=== PATIENT | male | born 1940 | race Caucasian/White ===

== ENCOUNTER 2018-04-24 19:44 | Inpatient (IN) | payer MEDICARE ==
[2018-04-24 20:06] LABS: ABSOLUTE BASOPHILS # (AUTO) 0.1 10^3/uL (0.0-0.2); ABSOLUTE EOSINOPHILS # (AUTO) 0.3 10^3/uL (0.0-0.6); ABSOLUTE LYMPHOCYTES (AUTO) 1.6 10^3/uL (0.5-4.7); ABSOLUTE MONOCYTES (AUTO) 0.7 10^3/uL (0.1-1.4); ABSOLUTE NEUT (AUTO) 5.7 10^3/uL (1.7-8.2); BASOPHILS % (AUTO) 1.1 % (0-2); HEMATOCRIT 37.9 % (37.9-51.0); HEMOGLOBIN 12.8 g/dL (13.5-17.0); LYMPHOCYTES % (AUTO) 19.5 % (13-45); MEAN CORPUSCULAR HEMOGLOBIN 26.9 pg (27.0-33.4); MEAN CORPUSCULAR HGB CONC 33.7 g/dL (32.0-36.0); MEAN CORPUSCULAR VOLUME 80 fl (80-97); MONOCYTES % (AUTO) 8.2 % (3-13); PLATELET COUNT 187 10^3/uL (150-450); RED BLOOD COUNT 4.74 10^6/uL (4.35-5.55); RED CELL DISTRIBUTION WIDTH 20.9 % (11.5-14.0); SEGMENTED NEUTROPHILS % (AUTO) 68.2 % (42-78); TOTAL CELLS COUNTED % (AUTO) 100 %; WHITE BLOOD COUNT 8.4 10^3/uL (4.0-10.5)
[2018-04-24 20:07] LABS: INTERNATIONAL RATION (INR) 0.92; PROTHROMBIN TIME 12.8 SEC (11.4-15.4)
--- NOTE | 2018-04-24 20:07 | ER Document Report ---
ED General - General Stated Complaint: STROKE LIKE SYMPTOMS Time Seen by Provider: 04/24/18 20:06 Notes: Patient is a 78-year-old male with a past medical history of von Willebrand's disease, essential hypertension, current tobacco abuse, presents with 2 weeks of intermittent difficulty speaking and 3 hours of right upper and right lower extremity weakness. Patient states this weakness makes it difficult for him to walk. States that the symptoms started relatively abruptly, have been ongoing since that time. Denies any history of similar symptoms in the past. Nothing seems to improve or worsen his symptoms. Denies any associated chest pain, headache, vomiting, fever or constitutional symptoms. No recent head trauma. - Related Data Allergies/Adverse Reactions: aspirin Allergy (Mild, Verified 04/24/18 21:07) ibuprofen [From Advil] Allergy (Mild, Verified 04/24/18 21:08) Penicillins Allergy (Mild, Verified 04/24/18 21:08) Past Medical History - General Information source: Patient - Social History Smoking Status: Current Every Day Smoker Frequency of alcohol use: None Drug Abuse: None Lives with: Family Family History: Reviewed & Not Pertinent Review of Systems - Review of Systems Notes: Constitutional: Negative for fever. HENT: Negative for sore throat. Eyes: Negative for visual changes. Cardiovascular: Negative for chest pain. Respiratory: Negative for shortness of breath. Gastrointestinal: Negative for abdominal pain, vomiting or diarrhea. Genitourinary: Negative for dysuria. Musculoskeletal: Negative for back pain. Skin: Negative for rash. Neurological: Positive for dysarthria, right upper extremity and right lower extremity weakness 10 point ROS negative except as marked above and in HPI. Physical Exam - Vital signs Vitals: Pulse Resp BP Pulse Ox 63 20 201/115 H 98 04/24/18 19:55 04/24/18 19:55 04/24/18 19:55 04/24/18 19:55 Interpretation: Hypertensive Notes: PHYSICAL EXAMINATION: GENERAL: Well-appearing, well-nourished and in no acute distress. HEAD: Atraumatic, normocephalic. EYES: Pupils equal round and reactive to light, extraocular movements intact, s clera anicteric, conjunctiva are normal. ENT: nares patent, oropharynx clear without exudates. Moderate dry mucous membranes. NECK: Normal range of motion, supple without lymphadenopathy LUNGS: Breath sounds clear to auscultation bilaterally and equal. No wheezes rales or rhonchi. HEART: Regular rate and rhythm without murmurs ABDOMEN: Soft, nontender, normoactive bowel sounds. No guarding, no rebound. No masses appreciated. EXTREMITIES: Normal range of motion, no pitting or edema. No cyanosis. NEUROLOGICAL: On initial neurologic assessment, the patient has 4- out of 5 biceps and triceps strength 4- distal and proximal in the right lower extremity. Face symmetric. Tongue protrudes midline. No expressive or receptive A-shaped aphasia. Very mild dysarthria. 5 out of 5 biceps and triceps in the left upper extremity as well as 5 out of 5 distal and proximal in the left lower extremity. PSYCH: Normal mood, normal affect. SKIN: Warm, Dry, normal turgor, no rashes or lesions noted. Course - Re-evaluation Re-evalutation: 04/24/18 20:07 Patient presents with signs and symptoms most consistent with an acute left- sided MCA distribution stroke with approximately 4- out of 5 strength both in the biceps and triceps as well as distally and proximally in the right lower externally, normal on left. No facial droop. Slight dysarthria. No aphasia. Patient has a history of von Willebrand's disease, this is an absolute exclusion criteria for TPA. CT of the head pending. Standard stroke labs pending. Will continue to reassess the patient. 04/24/18 20:36 Patient's neurologic exam is been repeated. He admits of mild dysarthria, no aphasia. The patient's motor exam however has almost completely normalized almost 5 out of 5 both distally and proximally in the bilateral upper and lowers with perhaps very slight weakness to the right lower extremity 4+ out of 5 maximally. This is more suggestive of a TIA picture as opposed to a true stroke. CT the head unremarkable. She does have extremely elevated blood pressure currently 227 on 106 however reports that he has been unable to take blood pressure medications in the past as they have caused his bleeding diathesis to worsen and moreover this is more like an ischemic event so we will not proceed with any emergent blood pressure lowering at this time. Patient will go for MRI, carotid Dopplers. 04/24/18 22:31 MRI is consistent with a left thalamic stroke. Carotid Dopplers pending. I have discussed with Dr. Piña who has accepted the patient. - Vital Signs Vital signs: Temp Pulse Resp BP Pulse Ox 98.4 F 57 L 19 196/96 H 97 04/24/18 23:16 04/24/18 23:16 04/24/18 23:46 04/24/18 23:46 04/24/18 23:46 - Laboratory Result Diagrams: 04/24/18 19:31 04/24/18 19:31 Laboratory results interpreted by me: 04/24/18 04/24/18 04/24/18 19:31 19:31 20:07 Hgb 12.8 L MCH 26.9 L RDW 20.9 H Carbon Dioxide 31 H Glucose 113 H POC Glucose 119 H ALT 6 L - Diagnostic Test Radiology reviewed: Image reviewed, Reports reviewed Radiology results interpreted by me: 04/25/18 01:51 CT head: No acute intracranial bleed or mass - EKG Interpretation by Me Additional EKG results interpreted by me: 04/25/18 01:51 Sinus rhythm, rate 63. LVH. No ST elevations or depressions. QTC 476. Critical Care Note - Critical Care Note Total time excluding time spent on procedures (mins): 35 Comments: Critical care time spent obtaining history from patient or surrogate, discussions with consultants, development of treatment plan with patient or surrogate, evaluation of patient's response to treatment, examination of patient, ordering and performing treatments and interventions, ordering and review of laboratory studies, re-evaluation of patient's condition, ordering and review of radiographic studies and review of old charts Discharge - Discharge Clinical Impression: Acute ischemic stroke, Thalamic stroke Condition: Fair Disposition: ADMITTED INPATIENT Admitting Provider: Hospitalist Unit Admitted: [facility]
[2018-04-24 20:08] LABS: PARTIAL THROMBOPLASTIN TIME 34.6 SEC (23.5-35.8)
--- NOTE | 2018-04-24 20:21 | RADIOLOGY REPORT (SQ) ---
EXAM DESCRIPTION: CT HEAD WITHOUT IV CONTRAST COMPLETED DATE/TME: 04/24/2018 00:00 CLINICAL HISTORY: 78 years Male STROKE ALERT, deficits in the left MCA distribution, symptoms began three hours ago COMPARISON: None. TECHNIQUE: Contiguous axial CT images obtained through the brain without IV contrast. This exam was performed according to our department optimization program which includes automated exposure control, adjustment of the mA and/or kv according to patient size and/or use of iterative reconstruction technique. FINDINGS: The ventricles and sulci are prominent consistent with atrophic changes. Microvascular ischemic changes. Old area of previous lacunar infarct in the thalamus on the left. No midline shift or mass effect. No mass lesions. No acute hemorrhage. Atherosclerotic calcifications. No fluid or significant mucosal thickening in the visualized paranasal sinuses. No depressed calvarial fractures. IMPRESSION: No acute intracranial abnormality is identified. Dr. Estrada was called and notified of the findings at 7:20 PM Central time. Generalized atrophy with microvascular ischemic changes.
--- NOTE | 2018-04-24 20:25 | RADIOLOGY REPORT (SQ) ---
EXAM DESCRIPTION: XR CHEST 1 VIEW COMPLETED DATE/TME: 04/24/2018 00:00 CLINICAL HISTORY: 78 years, Male, STROKE ALERT COMPARISON: EXAM DESCRIPTION: CLINICAL HISTORY: STROKE ALERT COMPARISON: None. FINDINGS: Single view of the chest is submitted. Cardiac silhouette is normal. No focal parenchymal or pleural disease. No acute bony abnormality. There is no significant pulmonary vascular engorgement. IMPRESSION: No evidence of acute cardiopulmonary disease. NUMBER OF VIEWS: TECHNIQUE: LIMITATIONS: None. FINDINGS: IMPRESSION: copyright 2010 [employer]- All Rights Reserved
[2018-04-24 20:27] LABS: ALANINE AMINOTRANSFERASE 6 U/L (21-72); ALBUMIN 4.7 g/dL (3.5-5.0); ALKALINE PHOSPHATASE 65 U/L (38-126); ANION GAP 10 (5-19); ASPARTATE AMINO TRANSFERASE 21 U/L (17-59); BILIRUBIN,DIRECT 0.2 mg/dL (0.0-0.4); BILIRUBIN,TOTAL 0.3 mg/dL (0.2-1.3); BLOOD UREA NITROGEN 19 mg/dL (7-20); CALCIUM 9.8 mg/dL (8.4-10.2); CARBON DIOXIDE 31 mmol/L (22-30); CHLORIDE 99 mmol/L (98-107); CREATINE KINASE 152 U/L (55-170); GLUCOSE 113 mg/dL (75-110); SODIUM 140.4 mmol/L (137-145); TOTAL PROTEIN 7.3 g/dL (6.3-8.2)
[2018-04-24 20:40] LABS: CREATINE KINASE MB 4.25 ng/mL (<4.55)
[2018-04-24 20:42] LABS: TROPONIN I < 0.012 ng/mL
--- NOTE | 2018-04-24 20:51 | EKG REPORT ---
SEVERITY:- ABNORMAL ECG - SINUS RHYTHM LVH WITH SECONDARY REPOLARIZATION ABNORMALITY : Confirmed by: Lauren Maier MD 24-Apr-2018 20:51:03
--- NOTE | 2018-04-24 22:03 | RADIOLOGY REPORT (SQ) ---
EXAM DESCRIPTION: MR BRAIN WITHOUT IV CONTRAST COMPLETED DATE/TME: 04/24/2018 20:38 CLINICAL HISTORY: 78 years, Male, stroke vs tia COMPARISON: None. EXAM DESCRIPTION: CLINICAL HISTORY: stroke vs tia COMPARISON: 04/24/2018 CT TECHNIQUE: Multiplanar multisequence imaging of the brain including the intravenous administration of contrast. FINDINGS: There is a 8 x 5 mm focus of increased signal on diffusion imaging at the lateral aspect of the left thalamus involving the posterior limb of the left internal capsule. There is no definite corresponding increased signal on FLAIR or T2. This is consistent with hyperacute ischemia. There is no associated mass effect. No acute ischemia is seen elsewhere. Scattered foci of increased T2 signal intensity elsewhere do not exert significant mass effect on surrounding structures and may be sequela of prior insult, most likely on the basis of small vessel disease. No clear evidence of acute hemorrhage. There is no other evidence of acute mass, mass effect, midline shift or hemorrhage elsewhere. No focal abnormal extra-axial fluid collection is seen. The ventricles, basal cisterns and extra-axial fluid spaces are normal in size and configuration. Brain parenchymal signal is otherwise normal. IMPRESSION: There is hyperacute ischemia involving the lateral aspect of the left thalamus. No other acute abnormality is identified. No definite acute hemorrhage.
--- NOTE | 2018-04-24 23:08 | RADIOLOGY REPORT (SQ) ---
EXAM DESCRIPTION: US CAROTID DOPPLER BILATERAL COMPLETED DATE/TME: 04/24/2018 20:38 CLINICAL HISTORY: 78 years, Male, tia/stroke COMPARISON: None. TECHNIQUE: Transverse and longitudinal sonographic images of the cervical portions of the carotid arteries. LIMITATIONS: None. FINDINGS: Mild atheromatous changes associated with the carotid bifurcations bilaterally. No visible areas of severe stenosis. Doppler and spectral analysis with color flow shows antegrade flow in the vertebral arteries bilaterally. Biphasic and triphasic waveforms bilaterally. Velocities are as follows (in peak systolic velocity): Right distal CCA: 52 cm/s. Right proximal ICA: 59 cm/s. Right distal ICA: 71 cm/s. Right ECA: 52 cm/s. Right vertebral artery: 61 cm/s. Left distal CCA: 72 cm/s. Left proximal ICA: 58 cm/s. Left distal ICA: 87 cm/s. Left ECA: 133 cm/s. Left vertebral artery: 47 cm/s. IMPRESSION: Mild atheromatous changes of the carotid bifurcations bilaterally with no evidence for severe stenosis. Elevated left ECA velocity is noted. Antegrade flow in the vertebral arteries. copyright 2010 [employer]- All Rights Reserved
[2018-04-25] MEDS ORDERED: ONDANSETRON 4 MG TAB.RAPDIS PO PRN (00:13)
[2018-04-25] MEDS ORDERED: MAGNESIUM HYDROXIDE SUSP 30 ML UDCUP PO PRN (00:13)
[2018-04-25] MEDS ORDERED: ONDANSETRON HCL INJ/PF 4 MG/2 ML SDV IV PRN (00:13)
[2018-04-25] MEDS ORDERED: MAG HYDROX/AL HYDROX/SIMETH SUSP 30 ML UDCUP PO PRN (00:13)
[2018-04-25] MEDS ORDERED: ZOLPIDEM TARTRATE 5 MG TABLET PO PRN (00:13)
[2018-04-25] MEDS ORDERED: HYDRALAZINE HCL INJ/PF 20 MG/1 ML SDV IV PRN (00:37)
[2018-04-25] MEDS: METOPROLOL TARTRATE PF/INJ 5 MG/5 ML SDV IV SCH ×3 (02:35→13:26)
--- NOTE | 2018-04-25 05:07 | PDOC H&P ---
History of Present Illness Admission Date/PCP: 04/24/18 22:35 Patient complains of: Right sided weakness History of Present Illness: ANSELMO BOLTON is a 78 year old male who presented to the emergency room with an acute onset of right-sided weakness. He admits that at approximately 5 PM (3 hours prior to ER presentation) he suddenly developed severe right-sided weakness involving both his arms and his leg. Additionally he noted that he was unable to speak though he had no difficulty understanding language or written words. Over the first 2-3 hours his symptoms persisted but gradually began resolving with his speech improving to the point where it was slightly slurred but he was able to speak the words he wished to use. His right arm and leg also improved gradually after the same initial period of persistence. He has course was of gradual improvement throughout his entire ER visit to the point where at the time of my evaluation he had essentially no symptoms. He admits that for 2 or 3 weeks he has noted some intermittent difficulty with his speech and that he would stutter or sometimes have difficulty getting his words out. He denies any other associated symptoms. He admits to being a smoker and has untreated hypertension because he has been told, by his physician, that someone who has what von Willebrand's disease cannot take any high blood pressure medicines or anything to prevent stroke. Additionally he relates that his physician told him that he should use nicotine but since he was unable to use a nicotine patch due to skin irritation his doctor recommended that he smokes cigarettes. Patient denies prior similar episodes and has not identified any aggravating or ameliorating factors for his weakness and dysarthria. In the emergency room he was found to have a hyperacute left thalamic lacunar infarction on MRI. He was subsequently admitted to [facility] and the stroke protocol. Past Medical History Cardiac Medical History: Reports: Hypertension Denies: Coronary Artery Disease Pulmonary Medical History: Denies: Asthma, Chronic Obstructive Pulmonary Disease (COPD) EENT Medical History: Denies: Cataracts Neurological Medical History: Denies: Hemorrhagic CVA, Ischemic CVA, Seizures Endocrine Medical History: Denies: Diabetes Mellitus Type 1, Diabetes Mellitus Type 2, Hyperthyroidism, Hypothyroidism Renal/ Medical History: Denies: Chronic Kidney Disease, Nephrolithiasis Malignancy Medical History: Reports: None GI Medical History: Denies: Cirrhosis, Hepatitis Musculoskeltal Medical History: Denies: Arthritis, Fibromyalgia Skin Medical History: Denies: Eczema, Psoriasis Psychiatric Medical History: Reports: Tobacco Dependency Denies: Alcohol Dependency, Substance Abuse Traumatic Medical History: Reports: None Hematology: Reports: Bleeding Tendencies, Other - Von Willebrand's disease Denies: Anemia Infectious Medical History: Reports: None Past Surgical History Past Surgical History: Reports: Appendectomy Social History Information Source: Patient Lives with: Spouse/Significant other Smoking Status: Current Every Day Smoker Frequency of Alcohol Use: None Hx Recreational Drug Use: No Drugs: None Hx Prescription Drug Abuse: No - Advance Directive Resuscitation Status: Full Code Surrogate healthcare decision maker:: Spouse Family History Family History: Hypertension, Other - Von Willebrand's disease Parental Family History Reviewed: Yes Children Family History Reviewed: No Sibling(s) Family History Reviewed.: Yes Medication/Allergy Allergies/Adverse Reactions: aspirin Allergy (Mild, Verified 04/24/18 21:07) ibuprofen [From Advil] Allergy (Mild, Verified 04/24/18 21:08) Penicillins Allergy (Mild, Verified 04/24/18 21:08) Review of Systems Constitutional: ABSENT: anorexia, chills, fever(s) Eyes: ABSENT: visual disturbances, other - Ocular pain Ears: ABSENT: hearing changes, other - Ear pain Nose, Mouth, and Throat: ABSENT: mouth pain, sore throat Cardiovascular: ABSENT: chest pain, dyspnea on exertion, palpitations Respiratory: ABSENT: cough, dyspnea Gastrointestinal: ABSENT: abdominal pain, constipation, diarrhea, nausea, vomiting Genitourinary: ABSENT: dysuria, hematuria Musculoskeletal: ABSENT: deformity, joint swelling - [id number] Integumentary: ABSENT: pruritus, rash Neurological: PRESENT: as per HPI, abnormal speech, focal weakness. ABSENT: confusion, convulsions, memory loss Psychiatric: ABSENT: anxiety, depression Endocrine: ABSENT: cold intolerance, heat intolerance Hematologic/Lymphatic: PRESENT: easy bleeding - Due to von Willebrand's disease. ABSENT: easy bruising Physical Exam Vital Signs: Temp Pulse Resp BP Pulse Ox 98.0 F 57 L 20 207/100 H 98 04/24/18 22:30 04/24/18 23:12 04/24/18 23:12 04/24/18 23:12 04/24/18 23:12 Intake & Output 04/22/18 04/23/18 04/24/18 23:59 23:59 23:59 Weight 65.9 kg General appearance: PRESENT: no acute distress, cooperative, well-developed Head exam: PRESENT: atraumatic, normocephalic Eye exam: PRESENT: conjunctiva pink. ABSENT: scleral icterus Ear exam: PRESENT: normal external ear exam. ABSENT: bleeding Mouth exam: PRESENT: dry mucosa, neck supple Neck exam: ABSENT: thyromegaly, tracheal deviation Respiratory exam: PRESENT: clear to auscultation lurdes, symmetrical, unlabored Cardiovascular exam: PRESENT: RRR, other - PMI is displaced to the left anterior axillary line in the fifth intercostal space. ABSENT: clicks, gallop, rubs Pulses: PRESENT: normal radial pulses, normal dorsalis pedis pul Vascular exam: PRESENT: normal capillary refill. ABSENT: pallor GI/Abdominal exam: PRESENT: normal bowel sounds, soft Rectal exam: PRESENT: deferred Extremities exam: ABSENT: joint swelling, pedal edema Musculoskeletal exam: PRESENT: full ROM, normal inspection Neurological exam: PRESENT: alert, oriented to person, oriented to place, oriented to time, oriented to situation, CN II-XII grossly intact. ABSENT: motor sensory deficit Psychiatric exam: PRESENT: appropriate affect, normal mood Skin exam: PRESENT: dry, intact, warm. ABSENT: jaundice, rash, urticaria Results Laboratory Results: 04/24/18 19:31 04/24/18 19:31 04/24/18 04/24/18 19:31 19:31 WBC 8.4 RBC 4.74 Hgb 12.8 L Hct 37.9 MCV 80 MCH 26.9 L MCHC 33.7 RDW 20.9 H Plt Count 187 Seg Neutrophils % 68.2 Lymphocytes % 19.5 Monocytes % 8.2 Eosinophils % 3.0 Basophils % 1.1 Absolute Neutrophils 5.7 Absolute Lymphocytes 1.6 Absolute Monocytes 0.7 Absolute Eosinophils 0.3 Absolute Basophils 0.1 Sodium 140.4 Potassium 4.0 Chloride 99 Carbon Dioxide 31 H Anion Gap 10 BUN 19 Creatinine 1.12 Est GFR ( Amer) > 60 Est GFR (Non-Af Amer) > 60 Glucose 113 H Calcium 9.8 Total Bilirubin 0.3 AST 21 ALT 6 L Alkaline Phosphatase 65 Total Protein 7.3 Albumin 4.7 04/24/18 04/24/18 19:31 19:31 Creatine Kinase 152 CK-MB (CK-2) 4.25 Troponin I < 0.012 Impressions: Chest X-Ray 04/24/18 00:00 IMPRESSION: No evidence of acute cardiopulmonary disease. NUMBER OF VIEWS: TECHNIQUE: LIMITATIONS: None. FINDINGS: IMPRESSION: copyright 2010 [employer]- All Rights Reserved Head CT 04/24/18 00:00 IMPRESSION: No acute intracranial abnormality is identified. Dr. Estrada was called and notified of the findings at 7:20 PM Central time. Generalized atrophy with microvascular ischemic changes. Carotid Doppler Study 04/24/18 20:38 IMPRESSION: Mild atheromatous changes of the carotid bifurcations bilaterally with no evidence for severe stenosis. Elevated left ECA velocity is noted. Antegrade flow in the vertebral arteries. copyright 2010 [employer]- All Rights Reserved Head MRI 04/24/18 20:38 IMPRESSION: There is hyperacute ischemia involving the lateral aspect of the left thalamus. No other acute abnormality is identified. No definite acute hemorrhage. Assessment & Plan - Diagnosis (1) Acute ischemic VBA thalamic stroke Qualifiers: Laterality: left Qualified Code(s): I63.212 - Cerebral infarction due to unspecified occlusion or stenosis of left vertebral artery; I63.22 - Cerebral infarction due to unspecified occlusion or stenosis of basilar artery Is this a current diagnosis for this admission?: Yes Plan: Patient will be admitted to the stroke protocol on [facility]. His symptoms are resolving rapidly and are essentially resolved at the time of my evaluation. He will be observed closely for recurrence of symptoms and evaluated for appropriat e control of his underlying hypertension and von Willebrand's disease. (2) Hypertension Qualifiers: Hypertension type: essential hypertension Qualified Code(s): I10 - Essential (primary) hypertension Is this a current diagnosis for this admission?: Yes Plan: Patient's blood pressure will be controlled utilizing IV hydralazine 20 mg every 4 hours and/or IV metoprolol 5 mg every 4 hours to maintain a blood pressure less than 160 systolic and or 100 diastolic. (3) Tobacco use disorder, severe, dependence Is this a current diagnosis for this admission?: Yes Plan: Smoking cessation has been advised and counseled briefly. Patient states he cannot use a nicotine patch and has now interested in discontinuing smoking. (4) Von Willebrand's disease Is this a current diagnosis for this admission?: Yes Plan: Patient's von Willebrand's disease may be evaluated by hematology consult if required. (5) Left ventricular hypertrophy due to hypertensive disease Is this a current diagnosis for this admission?: Yes Plan: Patient will have a echocardiogram to evaluate his cardiomegaly and left ventricular hypertrophy in light of his acute stroke. - Time Time Spent: 30 to 50 Minutes Critical Time spent with patient: Less than 15 minutes Smoking Cessation Education: 3 to 10 minutes Medications reviewed and adjusted accordingly: No - Not taking any medications Anticipated discharge: Home - Inpatient Certification Based on my medical assessment, after consideration of the patient's comorbidities, presenting symptoms, or acuity I expect that the services needed warrant INPATIENT care.: Yes I certify that my determination is in accordance with my understanding of Medicare's requirements for reasonable and necessary INPATIENT services [42 CFR 412.3e].: Yes Medical Necessity: Need Close Monitoring Due to Risk of Patient Decompensation, Need For Continuous Telemetry Monitoring, Need for Neurological Checks, Risk of Complication if Not Cared For in Hospital
[2018-04-25 08:26] LABS: APPEARANCE,URINE CLEAR; BILIRUBIN,URINE NEGATIVE (NEGATIVE); COLOR,URINE YELLOW; GLUCOSE, URINE NEGATIVE (NEGATIVE); KETONES,URINE NEGATIVE (NEGATIVE); LEUKOCYTE ESTERASE,URINE NEGATIVE (NEGATIVE); NITRITE,URINE NEGATIVE (NEGATIVE); PROTEIN,URINE NEGATIVE (NEGATIVE); URINE SPECIFIC GRAVITY 1.016; UROBILINOGEN,URINE NEGATIVE mg/dL (<2.0)
[2018-04-25 09:22] LABS: HEMATOCRIT 39.6 % (37.9-51.0); HEMOGLOBIN 13.1 g/dL (13.5-17.0); MEAN CORPUSCULAR HEMOGLOBIN 26.6 pg (27.0-33.4); MEAN CORPUSCULAR VOLUME 81 fl (80-97); PLATELET COUNT 195 10^3/uL (150-450); RED BLOOD COUNT 4.91 10^6/uL (4.35-5.55); RED CELL DISTRIBUTION WIDTH 20.9 % (11.5-14.0); WHITE BLOOD COUNT 8.4 10^3/uL (4.0-10.5)
[2018-04-25 09:43] LABS: ANION GAP 11 (5-19); BLOOD UREA NITROGEN 18 mg/dL (7-20); CALCIUM 9.5 mg/dL (8.4-10.2); CARBON DIOXIDE 26 mmol/L (22-30); CHLORIDE 101 mmol/L (98-107); CHOLESTEROL 211.86 mg/dL (0-200); GLUCOSE 138 mg/dL (75-110); TRIGLYCERIDES 70 mg/dL (<150)
[2018-04-25 09:53] LABS: DIRECT LDL 123 mg/dL (<100)
[2018-04-25 10:02] LABS: FREE T3 4.12 pg/mL (2.77-5.27); FREE T4 (FREE THYROXINE) 1.08 ng/dL (0.78-2.19)
[2018-04-25 10:15] LABS: THYROID STIMULATING HORMONE 2.1 uIU/mL (0.47-4.68)
--- NOTE | 2018-04-25 10:27 | RADIOLOGY REPORT (SQ) ---
EXAM DESCRIPTION: CT HEAD WITHOUT COMPLETED DATE/TIME: 04/25/2018 10:02 am REASON FOR STUDY: Evolving symptoms COMPARISON: None. TECHNIQUE: Axial images acquired through the brain without intravenous contrast. Images reviewed wi th bone, brain and subdural windows. Additional sagittal and coronal reconstructions were generated. Images stored on PACS. All CT scanners at this facility use dose modulation, iterative reconstruction, and/or weight based d osing when appropriate to reduce radiation dose to as low as reasonably achievable (ALARA). [facility]: Dose Right [facility]: CareDose [facility]: Dose Right [facility]: Teradose 4D [facility]: [employer] RADIATION DOSE: CT Rad equipment meets quality standard of care and radiation dose reduction techniq ues were employed. CTDIvol: 53.2 mGy. DLP: 1044 mGy-cm.mGy. LIMITATIONS: None. FINDINGS: VENTRICLES: Prominent. CEREBRUM: No masses. No hemorrhage. No midline shift. Areas of low density in the white matter mos t likely due to chronic micro-vascular ischemic change. No evidence for acute infarction. CEREBELLUM: No masses. No hemorrhage. No alteration of density. No evidence for acute infarction. EXTRAAXIAL SPACES: Age-related involutional change. No fluid collections. No masses. ORBITS AND GLOBE: No intra- or extraconal masses. Normal contour of globe without masses. CALVARIUM: No fracture. PARANASAL SINUSES: No fluid or mucosal thickening. SOFT TISSUES: No mass or hematoma. OTHER: No other significant finding. IMPRESSION: CHRONIC CHANGES OF ATROPHY AND MICROVASCULAR ISCHEMIA. NO ACUTE PROCESS. EVIDENCE OF ACUTE STROKE: NO. TECHNICAL DOCUMENTATION: JOB ID: [id number] Quality ID # [id number]: Final reports with documentation of one or more dose reduction techniques (e.g., Au tomated exposure control, adjustment of the mA and/or kV according to patient size, use of iterative reconstruction technique) 2010 [employer]- All Rights Reserved Reading location - IP/workstation name: [email or web address]
[2018-04-25] MEDS: FAMOTIDINE 20 MG TABLET PO SCH ×2 (13:16→22:35)
[2018-04-25] MEDS: DOCUSATE SODIUM 100 MG CAPSULE PO SCH ×2 (13:16→18:28)
--- NOTE | 2018-04-25 13:19 | PDOC CONSULTATION ---
Consultation Consult Date: 04/25/18 Attending physician:: SUSAN CASTILLO Consult reason:: Known history of von Willebrand's disease long-standing, here with stroke need for antiplatelet therapy History of Present Illness Admission Date/PCP: 04/24/18 22:35 Patient complains of: Right-sided weakness, facial droop History of Present Illness: ANSELMO BOLTON is a 78 year old male who had acute onset right-sided weakness, facial droop, presented to the ED. Ultimately had CT noncontrasted of the head which did not indicate any evidence of bleed, thereafter had MRI of the brain which indicated a left thalamic infarct. He gave history of von Willebrand's disease. He does not know what type but is part of a large family of von Willebrand's patients in [facility] who has been extensively worked up by [facility]. He has never needed Humate-P replacement, but he has had bleeds. He has had occult GI bleeds, nosebleeds in the past. The most recent surgical stress was a colonoscopy that was done and he had 4 polyps removed and 24 hours out he had a severe post polypectomy bleed that required clips to be placed in the colon. In the last 3 months he has had a nosebleed that required cauterization. He has been on aspirin in the past and has had GI bleed post aspirin therapy. Past Medical History Cardiac Medical History: Reports: Hypertension Denies: Coronary Artery Disease Pulmonary Medical History: Denies: Asthma, Chronic Obstructive Pulmonary Disease (COPD) EENT Medical History: Reports: Other - Von Willebrand's disease Denies: Cataracts Neurological Medical History: Denies: Hemorrhagic CVA, Ischemic CVA, Seizures Endocrine Medical History: Denies: Diabetes Mellitus Type 1, Diabetes Mellitus Type 2, Hyperthyroidism, Hypothyroidism Renal/ Medical History: Denies: Chronic Kidney Disease, Nephrolithiasis Malignancy Medical History: Reports: None GI Medical History: Denies: Cirrhosis, Hepatitis Musculoskeltal Medical History: Denies: Arthritis, Fibromyalgia Skin Medical History: Denies: Eczema, Psoriasis Psychiatric Medical History: Reports: Tobacco Dependency Denies: Alcohol Dependency, Substance Abuse Traumatic Medical History: Reports: None Hematology: Reports: Bleeding Tendencies, Other - Von Willebrand's disease Denies: Anemia Infectious Medical History: Reports: None Past Surgical History Past Surgical History: Reports: Appendectomy, Other - Colonoscopy, left knee surgery Social History Information Source: Patient Lives with: Spouse/Significant other Smoking Status: Current Every Day Smoker Cigarettes Packs Per Day: 1 Frequency of Alcohol Use: None Hx Recreational Drug Use: No Drugs: None Hx Prescription Drug Abuse: No - Advance Directive Resuscitation Status: Full Code Family History Family History: Hypertension, Other - Von Willebrand's disease Parental Family History Reviewed: Yes Children Family History Reviewed: Yes Sibling(s) Family History Reviewed.: Yes Medication/Allergy Home Medications: No Home Medications 04/25/18 Allergies/Adverse Reactions: aspirin Allergy (Mild, Verified 04/24/18 21:07) ibuprofen [From Advil] Allergy (Mild, Verified 04/24/18 21:08) Penicillins Allergy (Mild, Verified 04/24/18 21:08) Review of Systems Constitutional: ABSENT: chills, fever(s), headache(s), weight gain, weight loss Eyes: ABSENT: visual disturbances Ears: ABSENT: hearing changes Cardiovascular: ABSENT: chest pain, dyspnea on exertion, edema, orthropnea, palpitations Respiratory: ABSENT: cough, hemoptysis Gastrointestinal: ABSENT: abdominal pain, constipation, diarrhea, hematemesis, hematochezia, nausea, vomiting Genitourinary: ABSENT: dysuria, hematuria Musculoskeletal: ABSENT: joint swelling Integumentary: ABSENT: rash, wounds Neurological: ABSENT: abnormal gait, abnormal speech, confusion, dizziness, focal weakness, syncope Psychiatric: ABSENT: anxiety, depression, homidical ideation, suicidal ideation Endocrine: ABSENT: cold intolerance, heat intolerance, polydipsia, polyuria Hematologic/Lymphatic: ABSENT: easy bleeding, easy bruising Physical Exam Vital Signs: Temp Pulse Resp BP Pulse Ox 97.7 F 61 16 188/87 H 97 04/25/18 08:36 04/25/18 10:08 04/25/18 08:36 04/25/18 10:08 04/25/18 08:36 Intake & Output 04/24/18 04/25/18 04/26/18 06:59 06:59 07:59 Weight 62 kg General appearance: PRESENT: no acute distress, well-developed, well-nourished Head exam: PRESENT: atraumatic, normocephalic Eye exam: PRESENT: conjunctiva pink, EOMI, PERRLA. ABSENT: scleral icterus Ear exam: PRESENT: normal external ear exam Mouth exam: PRESENT: moist, tongue midline Neck exam: ABSENT: carotid bruit, JVD, lymphadenopathy, thyromegaly Respiratory exam: PRESENT: clear to auscultation lurdes. ABSENT: rales, rhonchi, wheezes Cardiovascular exam: PRESENT: RRR. ABSENT: diastolic murmur, rubs, systolic murmur Pulses: PRESENT: normal dorsalis pedis pul Vascular exam: PRESENT: normal capillary refill GI/Abdominal exam: PRESENT: normal bowel sounds, soft. ABSENT: distended, guarding, mass, organolmegaly, rebound, tenderness Rectal exam: PRESENT: deferred Extremities exam: PRESENT: full ROM. ABSENT: calf tenderness, clubbing, pedal edema Neurological exam: PRESENT: alert, awake, oriented to person, oriented to place, oriented to time, oriented to situation, CN II-XII grossly intact. ABSENT: motor sensory deficit Psychiatric exam: PRESENT: appropriate affect, normal mood. ABSENT: homicidal ideation, suicidal ideation Skin exam: PRESENT: dry, intact, warm. ABSENT: cyanosis, rash Results Laboratory Results: 04/25/18 09:01 04/25/18 09:01 04/24/18 04/24/18 04/25/18 19:31 19:31 06:15 WBC 8.4 RBC 4.74 Hgb 12.8 L Hct 37.9 MCV 80 MCH 26.9 L MCHC 33.7 RDW 20.9 H Plt Count 187 Seg Neutrophils % 68.2 Lymphocytes % 19.5 Monocytes % 8.2 Eosinophils % 3.0 Basophils % 1.1 Absolute Neutrophils 5.7 Absolute Lymphocytes 1.6 Absolute Monocytes 0.7 Absolute Eosinophils 0.3 Absolute Basophils 0.1 Sodium 140.4 Potassium 4.0 Chloride 99 Carbon Dioxide 31 H Anion Gap 10 BUN 19 Creatinine 1.12 Est GFR ( Amer) > 60 Est GFR (Non-Af Amer) > 60 Glucose 113 H Calcium 9.8 Magnesium Total Bilirubin 0.3 AST 21 ALT 6 L Alkaline Phosphatase 65 Total Protein 7.3 Albumin 4.7 Triglycerides Cholesterol LDL Cholesterol Direct VLDL Cholesterol HDL Cholesterol TSH Free T4 Free T3 pg/mL Urine Color YELLOW Urine Appearance CLEAR Urine pH 6.0 Ur Specific [place] 1.016 Urine Protein NEGATIVE Urine Glucose (UA) NEGATIVE Urine Ketones NEGATIVE Urine Blood NEGATIVE Urine Nitrite NEGATIVE Ur Leukocyte Esterase NEGATIVE Urine WBC (Auto) 0 Urine RBC (Auto) 2 04/25/18 04/25/1819 09:01 09:01 09:01 WBC 8.4 RBC 4.91 Hgb 13.1 L Hct 39.6 MCV 81 MCH 26.6 L MCHC 33.0 RDW 20.9 H Plt Count 195 Seg Neutrophils % Lymphocytes % Monocytes % Eosinophils % Basophils % Absolute Neutrophils Absolute Lymphocytes Absolute Monocytes Absolute Eosinophils Absolute Basophils Sodium 138.0 Potassium 4.0 Chloride 101 Carbon Dioxide 26 Anion Gap 11 BUN 18 Creatinine 0.90 Est GFR ( Amer) > 60 Est GFR (Non-Af Amer) > 60 Glucose 138 H Calcium 9.5 Magnesium 2.1 Total Bilirubin AST ALT Alkaline Phosphatase Total Protein Albumin Triglycerides 70 Cholesterol 211.86 H LDL Cholesterol Direct 123 H VLDL Cholesterol 14.0 HDL Cholesterol 68 TSH 2.10 Free T4 1.08 Free T3 pg/mL 4.12 Urine Color Urine Appearance Urine pH Ur Specific [place] Urine Protein Urine Glucose (UA) Urine Ketones Urine Blood Urine Nitrite Ur Leukocyte Esterase Urine WBC (Auto) Urine RBC (Auto) 04/24/18 04/24/18 04/25/18 19:31 19:31 09:01 Creatine Kinase 152 CK-MB (CK-2) 4.25 Troponin I < 0.012 NT-Pro-B Natriuret Pep 1130 H Impressions: Chest X-Ray 04/24/18 00:00 IMPRESSION: No evidence of acute cardiopulmonary disease. NUMBER OF VIEWS: TECHNIQUE: LIMITATIONS: None. FINDINGS: IMPRESSION: copyright 2010 [employer]- All Rights Reserved Carotid Doppler Study 04/24/18 20:38 IMPRESSION: Mild atheromatous changes of the carotid bifurcations bilaterally with no evidence for severe stenosis. Elevated left ECA velocity is noted. Antegrade flow in the vertebral arteries. copyright 2010 [employer]- All Rights Reserved Head MRI 04/24/18 20:38 IMPRESSION: There is hyperacute ischemia involving the lateral aspect of the left thalamus. No other acute abnormality is identified. No definite acute hemorrhage. Head CT 04/25/18 00:00 IMPRESSION: CHRONIC CHANGES OF ATROPHY AND MICROVASCULAR ISCHEMIA. NO ACUTE PROCESS. EVIDENCE OF ACUTE STROKE: NO. Assessment & Plan - Diagnosis (1) Von Willebrand's disease Is this a current diagnosis for this admission?: Yes Plan: He does appear to most likely to have severe type I von Willebrand's disease most likely, we did send von Willebrand profile as well as multimers, this will help delineate his type of von Willebrand disease for sure. Unfortunately he is at a high risk for bleed if we place antiplatelet agents on. Hold on placement of any anticoagulation until we have von Willebrand profile back. Will make further recommendations thereafter. (2) Thalamic stroke Is this a current diagnosis for this admission?: Yes Plan: Hold on antiplatelet therapy, will monitor. - Time Time Spent: Greater than 70 Minutes - Inpatient Certification Based on my medical assessment, after consideration of the patient's comorbidities, presenting symptoms, or acuity I expect that the services needed warrant INPATIENT care.: Yes I certify that my determination is in accordance with my understanding of Medicare's requirements for reasonable and necessary INPATIENT services [42 CFR 412.3e].: Yes Medical Necessity: Risk of Complication if Not Cared For in Hospital
--- NOTE | 2018-04-25 16:43 | PROGRESS NOTE E ---
Progress Note NAME: ANSELMO BOLTON : 1940 AGE: 78Y DATE: 04/25/2018 ROOM: 330 SUBJECTIVE: At approximately 9 a.m. I was notified by nursing staff that the patient had developed worsening of his presenting symptoms. The did have a right-sided facial droop as well as paresthesias and near flaccidity of his right upper extremity. The patient was noted to be significantly hypertensive this morning 201/106. The patient was medicated with hydralazine as ordered and his blood pressure lower to 157/91. Subsequently the patient had worsening of his presenting symptoms. The patient was able to maintain his airway. He was alert and oriented, just with more expressive aphasia and more persistent weakness. A CT of the head was obtained, had no evidence of bleeding associated with this. The patient cannot be medicated given his Von Willebrand's disease. I did call and discuss the case with Dr. Ornelas of hematology, who has agreed to see the patient on consultation, and it was agreed that antiplatelet therapy is not feasibly in this patient. Therefore, this cannot be administered. The patient was seen and evaluated by Dr. Ornelas and I did accompany him for this visit. All questions were answered. The patient is aware that this is indeed related to the stroke that was seen on imaging on 04/24/2018 at 1038. The patient's symptoms will wax and wane most likely due to the patient's drop in cerebral perfusion. A STAT liter of fluid was given to increase his blood pressure again to the 200 range, which is the patient's actual baseline. I did have a conversation with the patient at bedside regarding goals of care and advance directives and so forth, and the patient stated that if he needed a feeding tube he would want it. However, he does want to be a DNR/DNI, "should the Lord take him he does not want to be brought back." The patient stated that if his heart stopped or if he were to cease respirations he would not any resuscitation. This was said in conjunction with the patient's nurse. REVIEW OF SYSTEMS: The rest of review of systems negative. MEDICATIONS: Have been reviewed. OBJECTIVE: GENERAL: The patient is a 78-year-old male who is awake, alert, and oriented to person, time, place, situation. He is verbal, conversational, does have some aphasia. Does not appear to be in any acute distress. VITAL SIGNS: Temperature is 97.7, pulse 61, respirations 16, blood pressure is 188/87, oxygen saturation is 97% on room air. SKIN: Warm and dry. No rash. He is not diaphoretic. HEENT: Pupils equal, round and reactive to light and accommodation. Conjunctivae are pink. No evidence of JVP. CARDIOVASCULAR: Heart is regular. There is no murmur or rub. CHEST: Clear, symmetrical, unlabored. ABDOMEN: Soft and nontender. EXTREMITIES: No clubbing, cyanosis, no edema. NEUROLOGIC: The patient's right arm is near flaccidity. He does have a right-sided facial droop noted. PSYCHIATRIC: The patient does have an appropriate affect, pleasant mood. DIAGNOSTICS: Lab values are as follows - hematology obtained on 04/25/2018; WBC is 8.4, hemoglobin is 13.1, hematocrit is 39.6, platelet count is 195,000. Chemistry obtained on 04/25/2018; sodium is 138, potassium 4.0, chloride is 101, carbon dioxide 26, BUN 18, creatinine is 0.90, glucose 138, calcium is 9.5, magnesium is 2.1. Triglyceride is 70, cholesterol is 211, LDL is 123, VLDL is 14, HDL is 68. IMPRESSION AND PLAN: 1. ACUTE ISCHEMIC VBA THALAMIC STROKE. Unfortunately the patient is unable to have any antiplatelet therapy. The patient has been seen and evaluated by hematology service as well. Von Willebrand panel has been sent out to evaluate his levels. Will refer the patient for acute rehab with Dr. Fu and continue supportive measures. The patient will be evaluated by speech, occupational, and physical therapies. 2. HYPERTENSION. The patient does not take any antihypertensive agents and his normal blood pressure is in the 200 range. Will not have tight blood pressure control given the severity of the patient's symptoms with poor perfusion. Will set blood pressure parameters if greater than 220. 3. TOBACCO DEPENDENCY CONTINUOUS. Discussed cessation education. The patient refuses any pharmacological intervention. He states that he cannot use the patch but is interested in stopping smoking all together, possibly. 4. VON WILLEBRAND'S DISEASE. Panels have been send. Do greatly appreciate Dr. Ornelas's speedy help with this. 5. LEFT VENTRICULAR HYPERTROPHY DUE TO HYPERTENSIVE DISEASE. The patient is to have an echo. CODE STATUS: The patient is a DO NOT RESUSCITATE/DO NOT INTUBATE. DISPOSITION: Depending on the patient's symptomatology and diagnostic findings will reevaluate in the a.m. TIME SPENT: On this critical care visit, including assessment and plan, physical examination, patient education, and review of multiple labs and diagnostics is 35 minutes. DICTATING PHYSICIAN: YANNA FRASER NP [id number] PHY#: [id number] [id number] JOB#: [id number] ACCT: [id number] cc: >
--- NOTE | 2018-04-25 22:15 | EKG REPORT ---
SEVERITY:- ABNORMAL ECG - SINUS RHYTHM LVH WITH SECONDARY REPOLARIZATION ABNORMALITY : Confirmed by: Lauren Maier MD 25-Apr-2018 22:14:38
[2018-04-25] MEDS: ATORVASTATIN CALCIUM 40 MG TABLET PO SCH (22:35)
[2018-04-26 06:47] LABS: HEMATOCRIT 38.7 % (37.9-51.0); HEMOGLOBIN 12.9 g/dL (13.5-17.0); MEAN CORPUSCULAR HEMOGLOBIN 26.7 pg (27.0-33.4); MEAN CORPUSCULAR HGB CONC 33.3 g/dL (32.0-36.0); MEAN CORPUSCULAR VOLUME 80 fl (80-97); PLATELET COUNT 192 10^3/uL (150-450); RED BLOOD COUNT 4.82 10^6/uL (4.35-5.55); RED CELL DISTRIBUTION WIDTH 20.4 % (11.5-14.0); WHITE BLOOD COUNT 10.1 10^3/uL (4.0-10.5)
[2018-04-26 07:18] LABS: ANION GAP 8 (5-19); BLOOD UREA NITROGEN 17 mg/dL (7-20); CALCIUM 9.6 mg/dL (8.4-10.2); CARBON DIOXIDE 27 mmol/L (22-30); CHLORIDE 102 mmol/L (98-107); CHOLESTEROL 205.94 mg/dL (0-200); GLUCOSE 93 mg/dL (75-110); POTASSIUM 3.7 mmol/L (3.6-5.0); SODIUM 137.4 mmol/L (137-145); TRIGLYCERIDES 85 mg/dL (<150)
[2018-04-26 07:31] LABS: DIRECT LDL 124 mg/dL (<100)
[2018-04-26 07:37] LABS: FREE T3 3.65 pg/mL (2.77-5.27); FREE T4 (FREE THYROXINE) 1.12 ng/dL (0.78-2.19)
[2018-04-26 07:51] LABS: THYROID STIMULATING HORMONE 2.09 uIU/mL (0.47-4.68)
[2018-04-26] MEDS: FAMOTIDINE 20 MG TABLET PO SCH ×2 (09:38→21:37)
[2018-04-26] MEDS: DOCUSATE SODIUM 100 MG CAPSULE PO SCH ×2 (09:38→17:29)
--- NOTE | 2018-04-26 10:23 | PDOC PROGRESS REPORT ---
Subjective Progress Note for:: 04/26/18 Subjective:: Not much neurologic guide changer the last 24 hours Reason For Visit: ACUTE CVA Physical Exam Vital Signs: Temp Pulse Resp BP Pulse Ox 98.1 F 57 L 15 196/84 H 97 04/26/18 07:41 04/26/18 07:41 04/26/18 07:41 04/26/18 07:41 04/26/18 07:41 Intake & Output 04/25/18 04/26/18 04/27/18 05:59 06:59 06:59 Intake Total Output Total Balance Weight 61.5 kg General appearance: PRESENT: no acute distress, well-developed, well-nourished Head exam: PRESENT: atraumatic, normocephalic Eye exam: PRESENT: conjunctiva pink, EOMI, PERRLA. ABSENT: scleral icterus Ear exam: PRESENT: normal external ear exam Mouth exam: PRESENT: moist, tongue midline Neck exam: ABSENT: carotid bruit, JVD, lymphadenopathy, thyromegaly Respiratory exam: PRESENT: clear to auscultation lurdes. ABSENT: rales, rhonchi, wheezes Cardiovascular exam: PRESENT: RRR. ABSENT: diastolic murmur, rubs, systolic murmur Pulses: PRESENT: normal dorsalis pedis pul Vascular exam: PRESENT: normal capillary refill GI/Abdominal exam: PRESENT: normal bowel sounds, soft. ABSENT: distended, guarding, mass, organolmegaly, rebound, tenderness Rectal exam: PRESENT: deferred Extremities exam: PRESENT: full ROM. ABSENT: calf tenderness, clubbing, pedal edema Neurological exam: PRESENT: alert, awake, oriented to person, oriented to place, oriented to time, oriented to situation, CN II-XII grossly intact. ABSENT: motor sensory deficit Psychiatric exam: PRESENT: appropriate affect, normal mood. ABSENT: homicidal ideation, suicidal ideation Skin exam: PRESENT: dry, intact, warm. ABSENT: cyanosis, rash Results Laboratory Results: 04/26/18 06:33 04/26/18 06:33 04/25/18 04/25/18 04/25/18 09:01 09:01 09:01 WBC 8.4 RBC 4.91 Hgb 13.1 L Hct 39.6 MCV 81 MCH 26.6 L MCHC 33.0 RDW 20.9 H Plt Count 195 Sodium 138.0 Potassium 4.0 Chloride 101 Carbon Dioxide 26 Anion Gap 11 BUN 18 Creatinine 0.90 Est GFR ( Amer) > 60 Est GFR (Non-Af Amer) > 60 Glucose 138 H Calcium 9.5 Magnesium 2.1 Triglycerides 70 Cholesterol 211.86 H LDL Cholesterol Direct 123 H VLDL Cholesterol 14.0 HDL Cholesterol 68 TSH 2.10 Free T4 1.08 Free T3 pg/mL 4.12 04/26/18 04/26/18 04/26/18 06:33 06:33 06:33 WBC 10.1 RBC 4.82 Hgb 12.9 L Hct 38.7 MCV 80 MCH 26.7 L MCHC 33.3 RDW 20.4 H Plt Count 192 Sodium 137.4 Potassium 3.7 Chloride 102 Carbon Dioxide 27 Anion Gap 8 BUN 17 Creatinine 1.04 Est GFR ( Amer) > 60 Est GFR (Non-Af Amer) > 60 Glucose 93 Calcium 9.6 Magnesium 2.1 Triglycerides 85 Cholesterol 205.94 H LDL Cholesterol Direct 124 H VLDL Cholesterol 17.0 HDL Cholesterol 61 TSH 2.09 Free T4 1.12 Free T3 pg/mL 3.65 04/24/18 04/24/18 04/25/18 19:31 19:31 09:01 Creatine Kinase 152 CK-MB (CK-2) 4.25 Troponin I < 0.012 NT-Pro-B Natriuret Pep 1130 H 04/26/18 06:33 Creatine Kinase CK-MB (CK-2) Troponin I NT-Pro-B Natriuret Pep 766 H Impressions: Chest X-Ray 04/24/18 00:00 IMPRESSION: No evidence of acute cardiopulmonary disease. NUMBER OF VIEWS: TECHNIQUE: LIMITATIONS: None. FINDINGS: IMPRESSION: copyright 2010 [employer]- All Rights Reserved Carotid Doppler Study 04/24/18 20:38 IMPRESSION: Mild atheromatous changes of the carotid bifurcations bilaterally with no evidence for severe stenosis. Elevated left ECA velocity is noted. Antegrade flow in the vertebral arteries. copyright 2010 [employer]- All Rights Reserved Head MRI 04/24/18 20:38 IMPRESSION: There is hyperacute ischemia involving the lateral aspect of the left thalamus. No other acute abnormality is identified. No definite acute hemorrhage. Head CT 04/25/18 00:00 IMPRESSION: CHRONIC CHANGES OF ATROPHY AND MICROVASCULAR ISCHEMIA. NO ACUTE PROCESS. EVIDENCE OF ACUTE STROKE: NO. Assessment & Plan - Diagnosis (1) Von Willebrand's disease Is this a current diagnosis for this admission?: Yes Plan: Awaiting von Willebrand levels, will make further antiplatelet recommendations based upon this (2) Thalamic stroke Is this a current diagnosis for this admission?: Yes Plan: Continue with hospitalist team approach - Time Time Spent with patient: 15-24 minutes
[2018-04-26] MEDS: ATORVASTATIN CALCIUM 40 MG TABLET PO SCH (21:37)
--- NOTE | 2018-04-26 23:38 | PROGRESS NOTE E ---
Progress Note NAME: ANSELMO BOLTON : 1940 AGE: 78Y DATE: 04/26/2018 ROOM: 330 SUBJECTIVE: The patient is in bed. The patient states that he feels about the same as he did yesterday. Family is present at the bedside, active in the patient's care. All questions were addressed. The patient does deny any nausea, vomiting. No diarrhea, shortness of breath, dizziness, or chest pain. He still has persistent right-sided weakness. His facial droop does not appear as pronounced, and the patient does not voice any other concerns at this time. REVIEW OF SYSTEMS: The rest of the review of systems is negative. MEDICATIONS: Have been reviewed. OBJECTIVE: GENERAL: The patient is a 78-year-old male who is awake, alert, and oriented to person, time, place, situation. He is verbal, conversational. Does not appear to be in any acute distress. VITAL SIGNS: Temperature is 97.7, pulse 56, respirations 18, blood pressure is 199/91, oxygen saturation is 98% on room air. SKIN: Warm and dry. No rash. He is not diaphoretic. HEENT: Pupils equal, round and reactive to light and accommodation. Conjunctivae are pink. No evidence of JVP. CARDIOVASCULAR: Heart is regular. There is no murmur or rub. CHEST: Clear, symmetrical, unlabored. ABDOMEN: Soft, nontender, nondistended. BACK: No CVA tenderness, sacral edema. EXTREMITIES: No clubbing, cyanosis, or edema. PSYCHIATRIC: Appropriate affect, pleasant mood. NEUROLOGIC: The patient does have right-sided weakness, right upper extremity is near flaccid though the patient does have some movement of his right lower extremity. The patient's facial droop appears to have nearly resolved. DIAGNOSTICS: Lab values are as follows - hematology obtained on 04/26/2018; WBC is 10.1, hemoglobin is 12.9, hematocrit is 30.7, platelet count is 192,000. Chemistry obtained on 04/26/2018; sodium is 137, potassium 3.7, chloride is 102, carbon dioxide 27, BUN 17, creatinine 1.04, glucose 73, A1c is 5.5, calcium is 9.6, magnesium is 2.1. Triglycerides 85, cholesterol 205, LDL 124, VLDL 17, HDL is 61. IMPRESSION AND PLAN: 1. ACUTE ISCHEMIC VBA THALAMIC STROKE. Unfortunately the patient is unable to take antiplatelet therapy. The patient was seen and evaluated by the hematology service, Von Willebrand panel has been sent out. The patient has been referred for acute rehab. He is interested in [facility]. The patient has been evaluated by [facility]. The patient is tolerating a statin. 2. HYPERTENSION. The patient does not take any antihypertensive medications at home. His normal blood pressure has been in the systolic 200 range. The patient became profoundly symptomatic once his blood pressure was lowered to the 180s to 170 range. Will continue to keep a goal of less than 220 systolically. 3. VON WILLEBRAND'S DISEASE. Do appreciate Dr. Ornelas's speedy help with this. The patient is unable to have antiplatelet therapy. 4. LEFT VENTRICULAR HYPERTROPHY DUE TO HYPERTENSIVE DISEASE. 5. TOBACCO DEPENDENCY CONTINUOUS. Will continue to encourage tobacco cessation. CODE STATUS: The patient is a DO NOT RESUSCITATE/DO NOT INTUBATE. DISPOSITION: Depending on the patient's symptomatology and diagnostic findings will reevaluate in the a.m. TIME SPENT: On this follow up, including assessment and plan, physical examination, patient education and review of records and family meeting is 35 minutes. DICTATING PHYSICIAN: YANNA FRASER NP [id number] PHY#: [id number] ID: [id number] JOB#: [id number] ACCT: [id number] cc: >
[2018-04-27 06:04] LABS: HEMATOCRIT 38.6 % (37.9-51.0); HEMOGLOBIN 12.8 g/dL (13.5-17.0); MEAN CORPUSCULAR HEMOGLOBIN 26.6 pg (27.0-33.4); MEAN CORPUSCULAR HGB CONC 33.2 g/dL (32.0-36.0); MEAN CORPUSCULAR VOLUME 80 fl (80-97); PLATELET COUNT 170 10^3/uL (150-450); RED BLOOD COUNT 4.81 10^6/uL (4.35-5.55); WHITE BLOOD COUNT 9.8 10^3/uL (4.0-10.5)
[2018-04-27 06:22] LABS: ANION GAP 11 (5-19); BLOOD UREA NITROGEN 18 mg/dL (7-20); CALCIUM 9.2 mg/dL (8.4-10.2); CARBON DIOXIDE 25 mmol/L (22-30); CHLORIDE 101 mmol/L (98-107); GLUCOSE 86 mg/dL (75-110); POTASSIUM 3.8 mmol/L (3.6-5.0); SODIUM 136.9 mmol/L (137-145)
--- NOTE | 2018-04-27 08:18 | PDOC PROGRESS REPORT ---
Subjective Progress Note for:: 04/27/18 Subjective:: No acute events overnight, patient has greater strength in the right upper extremity, facial droop is improved greatly. Reason For Visit: ACUTE CVA Physical Exam Vital Signs: Temp Pulse Resp BP Pulse Ox 98.6 F 65 14 194/90 H 96 04/27/18 07:42 04/27/18 07:42 04/27/18 07:42 04/27/18 07:42 04/27/18 07:42 Intake & Output 04/26/18 04/27/18 04/28/18 06:59 06:59 06:59 Intake Total 536 Output Total 415 Balance 121 Weight 61.5 kg General appearance: PRESENT: no acute distress, well-developed, well-nourished Head exam: PRESENT: atraumatic, normocephalic Eye exam: PRESENT: conjunctiva pink, EOMI, PERRLA. ABSENT: scleral icterus Ear exam: PRESENT: normal external ear exam Mouth exam: PRESENT: moist, tongue midline Neck exam: ABSENT: carotid bruit, JVD, lymphadenopathy, thyromegaly Respiratory exam: PRESENT: clear to auscultation lurdes. ABSENT: rales, rhonchi, wheezes Cardiovascular exam: PRESENT: RRR. ABSENT: diastolic murmur, rubs, systolic murmur Pulses: PRESENT: normal dorsalis pedis pul Vascular exam: PRESENT: normal capillary refill GI/Abdominal exam: PRESENT: normal bowel sounds, soft. ABSENT: distended, guarding, mass, organolmegaly, rebound, tenderness Rectal exam: PRESENT: deferred Extremities exam: PRESENT: full ROM. ABSENT: calf tenderness, clubbing, pedal edema Neurological exam: PRESENT: alert, awake, oriented to person, oriented to place, oriented to time, oriented to situation, CN II-XII grossly intact. ABSENT: motor sensory deficit Psychiatric exam: PRESENT: appropriate affect, normal mood. ABSENT: homicidal ideation, suicidal ideation Skin exam: PRESENT: dry, intact, warm. ABSENT: cyanosis, rash Results Laboratory Results: 04/27/18 05:25 04/27/18 05:25 04/27/18 04/27/18 05:25 05:25 WBC 9.8 RBC 4.81 Hgb 12.8 L Hct 38.6 MCV 80 MCH 26.6 L MCHC 33.2 RDW 20.0 H Plt Count 170 Sodium 136.9 L Potassium 3.8 Chloride 101 Carbon Dioxide 25 Anion Gap 11 BUN 18 Creatinine 1.08 Est GFR ( Amer) > 60 Est GFR (Non-Af Amer) > 60 Glucose 86 Calcium 9.2 Magnesium 2.0 04/24/18 04/24/18 04/25/18 19:31 19:31 09:01 Creatine Kinase 152 CK-MB (CK-2) 4.25 Troponin I < 0.012 NT-Pro-B Natriuret Pep 1130 H 04/26/18 06:33 Creatine Kinase CK-MB (CK-2) Troponin I NT-Pro-B Natriuret Pep 766 H Impressions: Chest X-Ray 04/24/18 00:00 IMPRESSION: No evidence of acute cardiopulmonary disease. NUMBER OF VIEWS: TECHNIQUE: LIMITATIONS: None. FINDINGS: IMPRESSION: copyright 2010 [employer]- All Rights Reserved Carotid Doppler Study 04/24/18 20:38 IMPRESSION: Mild atheromatous changes of the carotid bifurcations bilaterally with no evidence for severe stenosis. Elevated left ECA velocity is noted. Antegrade flow in the vertebral arteries. copyright 2010 [employer]- All Rights Reserved Head MRI 04/24/18 20:38 IMPRESSION: There is hyperacute ischemia involving the lateral aspect of the left thalamus. No other acute abnormality is identified. No definite acute hemorrhage. Head CT 04/25/18 00:00 IMPRESSION: CHRONIC CHANGES OF ATROPHY AND MICROVASCULAR ISCHEMIA. NO ACUTE PROCESS. EVIDENCE OF ACUTE STROKE: NO. Assessment & Plan - Diagnosis (1) Von Willebrand's disease Is this a current diagnosis for this admission?: Yes Plan: Awaiting labs, also placed a call into tertiary care center about him, awaiting the results of that. (2) Thalamic stroke Is this a current diagnosis for this admission?: Yes Plan: Improved, hold on aspirin therapy until we have labs back for the von Willebrand's disease
[2018-04-27] MEDS: DOCUSATE SODIUM 100 MG CAPSULE PO SCH ×2 (10:02→17:22)
[2018-04-27] MEDS: FAMOTIDINE 20 MG TABLET PO SCH ×2 (10:02→21:06)
[2018-04-27] MEDS ORDERED: INDOMETHACIN 50 MG CAPSULE PO ONE (14:00)
[2018-04-27] MEDS ORDERED: PREDNISONE 20 MG TABLET PO ONE (14:00)
--- NOTE | 2018-04-27 15:59 | PDOC PROGRESS REPORT ---
Subjective Progress Note for:: 04/27/18 Subjective:: This is 78 years old male patient with past medical history of hypertension and von Willebrand's disease stented with sudden onset right-sided weakness and expressive aphasia. He CT scan of the head is negative his MRI shows left thalamic infarct. It is being managed with Lipitor but aspirin or any antiplatelet agent could not be given because of his underlying von Willebrand's disease. Burning I seen patient resting in bed he complains of right wrist and right knee joint swelling and pain it seems he has a flare of his gout. I started him on indomethacin and a dose of prednisone at Reason For Visit: ACUTE CVA Physical Exam Vital Signs: Temp Pulse Resp BP Pulse Ox 98.3 F 69 14 200/99 H 96 04/27/18 15:10 04/27/18 15:10 04/27/18 15:10 04/27/18 15:10 04/27/18 15:10 Intake & Output 04/26/18 04/27/18 04/28/18 06:59 06:59 06:59 Intake Total 536 474 Output Total 415 Balance 121 474 Weight 61.5 kg Results Laboratory Results: 04/27/18 05:25 04/27/18 05:25 04/27/18 04/27/18 05:25 05:25 WBC 9.8 RBC 4.81 Hgb 12.8 L Hct 38.6 MCV 80 MCH 26.6 L MCHC 33.2 RDW 20.0 H Plt Count 170 Sodium 136.9 L Potassium 3.8 Chloride 101 Carbon Dioxide 25 Anion Gap 11 BUN 18 Creatinine 1.08 Est GFR ( Amer) > 60 Est GFR (Non-Af Amer) > 60 Glucose 86 Calcium 9.2 Magnesium 2.0 04/24/18 04/24/18 04/25/18 19:31 19:31 09:01 Creatine Kinase 152 CK-MB (CK-2) 4.25 Troponin I < 0.012 NT-Pro-B Natriuret Pep 1130 H 04/26/18 06:33 Creatine Kinase CK-MB (CK-2) Troponin I NT-Pro-B Natriuret Pep 766 H Impressions: Chest X-Ray 04/24/18 00:00 IMPRESSION: No evidence of acute cardiopulmonary disease. NUMBER OF VIEWS: TECHNIQUE: LIMITATIONS: None. FINDINGS: IMPRESSION: copyright 2010 [employer]- All Rights Reserved Carotid Doppler Study 04/24/18 20:38 IMPRESSION: Mild atheromatous changes of the carotid bifurcations bilaterally with no evidence for severe stenosis. Elevated left ECA velocity is noted. Antegrade flow in the vertebral arteries. copyright 2010 [employer]- All Rights Reserved Head MRI 04/24/18 20:38 IMPRESSION: There is hyperacute ischemia involving the lateral aspect of the left thalamus. No other acute abnormality is identified. No definite acute hemorrhage. Head CT 04/25/18 00:00 IMPRESSION: CHRONIC CHANGES OF ATROPHY AND MICROVASCULAR ISCHEMIA. NO ACUTE PROCESS. EVIDENCE OF ACUTE STROKE: NO. 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 (3) Hypertension Qualifiers: Hypertension type: essential hypertension Qualified Code(s): I10 - Essential (primary) hypertension Is this a current diagnosis for this admission?: Yes Plan: Patient running high blood. But allowed him to have permissive hypertension
[2018-04-27] MEDS: METOPROLOL TARTRATE 50 MG TABLET PO SCH (17:22)
[2018-04-27] MEDS: ATORVASTATIN CALCIUM 40 MG TABLET PO SCH (21:06)
[2018-04-27] MEDS: INDOMETHACIN 25 MG CAPSULE PO SCH (21:06)
[2018-04-28] MEDS: METOPROLOL TARTRATE 50 MG TABLET PO SCH ×2 (05:43→18:47)
[2018-04-28] MEDS: INDOMETHACIN 25 MG CAPSULE PO SCH ×3 (05:49→21:35)
[2018-04-28 06:58] LABS: HEMATOCRIT 39.7 % (37.9-51.0); HEMOGLOBIN 13.2 g/dL (13.5-17.0); MEAN CORPUSCULAR HEMOGLOBIN 26.8 pg (27.0-33.4); MEAN CORPUSCULAR HGB CONC 33.3 g/dL (32.0-36.0); MEAN CORPUSCULAR VOLUME 81 fl (80-97); PLATELET COUNT 188 10^3/uL (150-450); RED BLOOD COUNT 4.92 10^6/uL (4.35-5.55); RED CELL DISTRIBUTION WIDTH 19.9 % (11.5-14.0); WHITE BLOOD COUNT 13.7 10^3/uL (4.0-10.5)
[2018-04-28 07:13] LABS: ANION GAP 12 (5-19); BLOOD UREA NITROGEN 29 mg/dL (7-20); CALCIUM 9.6 mg/dL (8.4-10.2); CARBON DIOXIDE 27 mmol/L (22-30); CHLORIDE 97 mmol/L (98-107); GLUCOSE 102 mg/dL (75-110); POTASSIUM 4.3 mmol/L (3.6-5.0); SODIUM 135.8 mmol/L (137-145)
--- NOTE | 2018-04-28 08:32 | PDOC PROGRESS REPORT ---
Subjective Progress Note for:: 04/28/18 Subjective:: Much better today, R arm strength improving, stood at side of bed yesterday but did not yet walk Reason For Visit: ACUTE CVA Physical Exam Vital Signs: Temp Pulse Resp BP Pulse Ox 97.4 F 43 L 16 201/87 H 98 04/28/18 07:40 04/28/18 07:40 04/28/18 07:40 04/28/18 07:40 04/28/18 07:40 Intake & Output 04/27/18 04/28/18 04/29/18 06:59 06:59 06:59 Intake Total 536 1546 Output Total 415 375 Balance 121 1171 Weight 61.5 kg General appearance: PRESENT: no acute distress, well-developed, well-nourished Head exam: PRESENT: atraumatic, normocephalic Eye exam: PRESENT: conjunctiva pink, EOMI, PERRLA. ABSENT: scleral icterus Ear exam: PRESENT: normal external ear exam Mouth exam: PRESENT: moist, tongue midline Neck exam: ABSENT: carotid bruit, JVD, lymphadenopathy, thyromegaly Respiratory exam: PRESENT: clear to auscultation lurdes. ABSENT: rales, rhonchi, wheezes Cardiovascular exam: PRESENT: RRR. ABSENT: diastolic murmur, rubs, systolic murmur Pulses: PRESENT: normal dorsalis pedis pul Vascular exam: PRESENT: normal capillary refill GI/Abdominal exam: PRESENT: normal bowel sounds, soft. ABSENT: distended, guarding, mass, organolmegaly, rebound, tenderness Rectal exam: PRESENT: deferred Extremities exam: PRESENT: full ROM. ABSENT: calf tenderness, clubbing, pedal edema Neurological exam: PRESENT: alert, awake, oriented to person, oriented to place, oriented to time, oriented to situation, CN II-XII grossly intact. ABSENT: motor sensory deficit Psychiatric exam: PRESENT: appropriate affect, normal mood. ABSENT: homicidal ideation, suicidal ideation Skin exam: PRESENT: dry, intact, warm. ABSENT: cyanosis, rash Results Laboratory Results: 04/28/18 06:05 04/28/18 06:05 04/28/18 04/28/18 06:05 06:05 WBC 13.7 H RBC 4.92 Hgb 13.2 L Hct 39.7 MCV 81 MCH 26.8 L MCHC 33.3 RDW 19.9 H Plt Count 188 Sodium 135.8 L Potassium 4.3 Chloride 97 L Carbon Dioxide 27 Anion Gap 12 BUN 29 H Creatinine 1.07 Est GFR ( Amer) > 60 Est GFR (Non-Af Amer) > 60 Glucose 102 Calcium 9.6 Magnesium 2.4 H 04/24/18 04/24/18 04/25/18 19:31 19:31 09:01 Creatine Kinase 152 CK-MB (CK-2) 4.25 Troponin I < 0.012 NT-Pro-B Natriuret Pep 1130 H 04/26/18 06:33 Creatine Kinase CK-MB (CK-2) Troponin I NT-Pro-B Natriuret Pep 766 H Impressions: Chest X-Ray 04/24/18 00:00 IMPRESSION: No evidence of acute cardiopulmonary disease. NUMBER OF VIEWS: TECHNIQUE: LIMITATIONS: None. FINDINGS: IMPRESSION: copyright 2010 [employer]- All Rights Reserved Carotid Doppler Study 04/24/18 20:38 IMPRESSION: Mild atheromatous changes of the carotid bifurcations bilaterally with no evidence for severe stenosis. Elevated left ECA velocity is noted. Antegrade flow in the vertebral arteries. copyright 2010 [employer]- All Rights Reserved Head MRI 04/24/18 20:38 IMPRESSION: There is hyperacute ischemia involving the lateral aspect of the left thalamus. No other acute abnormality is identified. No definite acute hemorrhage. Head CT 04/25/18 00:00 IMPRESSION: CHRONIC CHANGES OF ATROPHY AND MICROVASCULAR ISCHEMIA. NO ACUTE PROCESS. EVIDENCE OF ACUTE STROKE: NO. Assessment & Plan - Diagnosis (1) Von Willebrand's disease Is this a current diagnosis for this admission?: Yes Plan: Awaiting VWD levels, will make further determination based on that. (2) Thalamic stroke Is this a current diagnosis for this admission?: Yes Plan: Improving, still believe pt will need some form of inpt rehab.
[2018-04-28] MEDS: DOCUSATE SODIUM 100 MG CAPSULE PO SCH ×2 (09:31→18:47)
[2018-04-28] MEDS: FAMOTIDINE 20 MG TABLET PO SCH ×2 (09:31→21:35)
--- NOTE | 2018-04-28 14:37 | PDOC PROGRESS REPORT ---
Subjective Progress Note for:: 04/28/18 Subjective:: Patient seen and examined at bedside. He is awake alert oriented. Right wrist and knee swelling and excretion tenderness subsided after he was given single dose of 60 mg of prednisone and indomethacin 25 mg twice daily. Patient able to participate with physical therapy. Reason For Visit: ACUTE CVA Physical Exam Vital Signs: Temp Pulse Resp BP Pulse Ox 97.4 F 43 L 14 187/89 H 100 04/28/18 11:14 04/28/18 12:00 04/28/18 12:00 04/28/18 12:00 04/28/18 12:00 Intake & Output 04/27/18 04/28/18 04/29/18 06:59 06:59 06:59 Intake Total 536 1546 474 Output Total 415 375 150 Balance 121 1171 324 Weight 61.5 kg General appearance: PRESENT: no acute distress Head exam: PRESENT: atraumatic, normocephalic Eye exam: PRESENT: conjunctiva pink Mouth exam: PRESENT: moist Neck exam: ABSENT: carotid bruit, JVD, lymphadenopathy, thyromegaly Respiratory exam: PRESENT: clear to auscultation lurdes. ABSENT: rales, rhonchi, wheezes Cardiovascular exam: PRESENT: RRR. ABSENT: diastolic murmur, rubs, systolic murmur GI/Abdominal exam: PRESENT: normal bowel sounds, soft. ABSENT: distended, guarding, mass, organolmegaly, rebound, tenderness Neurological exam: PRESENT: alert, awake, oriented to time, oriented to situ ation, other - Right arm and right leg weakness about silver 5. Results Laboratory Results: 04/28/18 06:05 04/28/18 06:05 04/28/18 04/28/18 06:05 06:05 WBC 13.7 H RBC 4.92 Hgb 13.2 L Hct 39.7 MCV 81 MCH 26.8 L MCHC 33.3 RDW 19.9 H Plt Count 188 Sodium 135.8 L Potassium 4.3 Chloride 97 L Carbon Dioxide 27 Anion Gap 12 BUN 29 H Creatinine 1.07 Est GFR ( Amer) > 60 Est GFR (Non-Af Amer) > 60 Glucose 102 Calcium 9.6 Magnesium 2.4 H 04/24/18 04/24/18 04/25/18 19:31 19:31 09:01 Creatine Kinase 152 CK-MB (CK-2) 4.25 Troponin I < 0.012 NT-Pro-B Natriuret Pep 1130 H 04/26/18 06:33 Creatine Kinase CK-MB (CK-2) Troponin I NT-Pro-B Natriuret Pep 766 H Impressions: Chest X-Ray 04/24/18 00:00 IMPRESSION: No evidence of acute cardiopulmonary disease. NUMBER OF VIEWS: TECHNIQUE: LIMITATIONS: None. FINDINGS: IMPRESSION: copyright 2010 [employer]- All Rights Reserved Carotid Doppler Study 04/24/18 20:38 IMPRESSION: Mild atheromatous changes of the carotid bifurcations bilaterally with no evidence for severe stenosis. Elevated left ECA velocity is noted. Antegrade flow in the vertebral arteries. copyright 2010 [employer]- All Rights Reserved Head MRI 04/24/18 20:38 IMPRESSION: There is hyperacute ischemia involving the lateral aspect of the left thalamus. No other acute abnormality is identified. No definite acute hemorrhage. Head CT 04/25/18 00:00 IMPRESSION: CHRONIC CHANGES OF ATROPHY AND MICROVASCULAR ISCHEMIA. NO ACUTE PROCESS. EVIDENCE OF ACUTE STROKE: NO. 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 (3) Hypertension Qualifiers: Hypertension type: essential hypertension Qualified Code(s): I10 - Essential (primary) hypertension Is this a current diagnosis for this admission?: Yes Plan: Patient running high blood. But allowed him to have permissive hypertension (4) Von Willebrands disease Is this a current diagnosis for this admission?: Yes Plan: Management per Dr. Ornelas
[2018-04-28] MEDS: ATORVASTATIN CALCIUM 40 MG TABLET PO SCH (21:35)
[2018-04-29] MEDS: METOPROLOL TARTRATE 50 MG TABLET PO SCH (05:10)
[2018-04-29] MEDS: INDOMETHACIN 25 MG CAPSULE PO SCH (05:11)
[2018-04-29 07:46] VITALS: BP 162/87
--- NOTE | 2018-04-29 08:15 | PDOC TRANSFER SUMMARY ---
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 Is this a current diagnosis for this admission?: Yes (3) Hypertension Is this a current diagnosis for this admission?: Yes (4) Von Willebrands disease Is this a current diagnosis for this admission?: Yes - Additional Information Resuscitation Status: Full Code Prescriptions: Atorvastatin Calcium [Lipitor 40 mg Tablet] 40 mg PO QHS #30 tablet Home Medications: Atorvastatin Calcium [Lipitor 40 mg Tablet] 40 mg PO QHS #30 tablet 04/29/18 History of Present Illness Admission Date/PCP: 04/24/18 22:35 History of Present Illness: ANSELMO BOLTON is a 78 year old male who presented to the emergency room with an acute onset of right-sided weakness. He admits that at approximately 5 PM (3 hours prior to ER presentation) he suddenly developed severe right-sided weakness involving both his arms and his leg. Additionally he noted that he was unable to speak though he had no difficulty understanding language or written words. Over the first 2-3 hours his symptoms persisted but gradually began resolving with his speech improving to the point where it was slightly slurred but he was able to speak the words he wished to use. His right arm and leg also improved gradually after the same initial period of persistence. He has course was of gradual improvement throughout his entire ER visit to the point where at the time of my evaluation he had essentially no symptoms. He admits that for 2 or 3 weeks he has noted some intermittent difficulty with his speech and that he would stutter or sometimes have difficulty getting his words out. He denies any other associated symptoms. He admits to being a smoker and has untreated hypertension because he has been told, by his physician, that someone who has what von Willebrand's disease cannot take any high blood pressure medicines or anything to prevent stroke. Additionally he relates that his physician told him that he should use nicotine but since he was unable to use a nicotine patch due to skin irritation his doctor recommended that he smokes cigarettes. Patient denies prior similar episodes and has not identified any aggravating or ameli orating factors for his weakness and dysarthria. In the emergency room he was found to have a hyperacute left thalamic lacunar infarction on MRI. He was subsequently admitted to [facility] [place] and the stroke protocol. Hospital Course Hospital Course: This is 78 years old male patient with past medical history of hypertension and von Willebrand's disease stented with sudden onset right-sided weakness and expressive aphasia. He CT scan of the head is negative his MRI shows left thalamic infarct. It is being managed with Lipitor but aspirin or any antiplatelet agent could not be given because of his underlying von Willebrand's disease. Burning I seen patient resting in bed he complains of right wrist and right knee joint swelling and pain it seems he has a flare of his gout. I started him on indomethacin and a dose of prednisone 60mg. Patient seen resting in bed comfortably. The excruciating pain and tenderness involving his right wrist and right knee has subsided. His vital signs and blood works are unremarkable. Patient is going to be discharged to [facility] for acute short-term rehab. I will continue all his home medications. Physical Exam Vital Signs: Temp Pulse Resp BP Pulse Ox 97.4 F 50 L 16 194/85 H 99 04/28/18 15:11 04/28/18 16:00 04/28/18 16:00 04/28/18 16:00 04/28/18 16:00 Intake & Output 04/27/18 04/28/18 04/29/18 06:59 06:59 06:59 Intake Total 536 1546 474 Output Total 415 375 150 Balance 121 1171 324 Weight 61.5 kg General appearance: PRESENT: no acute distress Eye exam: PRESENT: conjunctiva pink Mouth exam: PRESENT: moist Neck exam: ABSENT: carotid bruit, JVD, lymphadenopathy, thyromegaly Respiratory exam: PRESENT: clear to auscultation lurdes. ABSENT: rales, rhonchi, w heezes Cardiovascular exam: PRESENT: RRR. ABSENT: diastolic murmur, rubs, systolic murmur Neurological exam: PRESENT: alert, awake, oriented to time, reflexes normal Results Laboratory Results: 04/28/18 06:05 04/28/18 06:05 04/28/18 04/28/18 06:05 06:05 WBC 13.7 H RBC 4.92 Hgb 13.2 L Hct 39.7 MCV 81 MCH 26.8 L MCHC 33.3 RDW 19.9 H Plt Count 188 Sodium 135.8 L Potassium 4.3 Chloride 97 L Carbon Dioxide 27 Anion Gap 12 BUN 29 H Creatinine 1.07 Est GFR ( Amer) > 60 Est GFR (Non-Af Amer) > 60 Glucose 102 Calcium 9.6 Magnesium 2.4 H 04/24/18 04/24/18 04/25/18 19:31 19:31 09:01 Creatine Kinase 152 CK-MB (CK-2) 4.25 Troponin I < 0.012 NT-Pro-B Natriuret Pep 1130 H 04/26/18 06:33 Creatine Kinase CK-MB (CK-2) Troponin I NT-Pro-B Natriuret Pep 766 H Impressions: Chest X-Ray 04/24/18 00:00 IMPRESSION: No evidence of acute cardiopulmonary disease. NUMBER OF VIEWS: TECHNIQUE: LIMITATIONS: None. FINDINGS: IMPRESSION: copyright 2010 [employer]- All Rights Reserved Carotid Doppler Study 04/24/18 20:38 IMPRESSION: Mild atheromatous changes of the carotid bifurcations bilaterally with no evidence for severe stenosis. Elevated left ECA velocity is noted. Antegrade flow in the vertebral arteries. copyright 2010 [employer]- All Rights Reserved Head MRI 04/24/18 20:38 IMPRESSION: There is hyperacute ischemia involving the lateral aspect of the left thalamus. No other acute abnormality is identified. No definite acute hemorrhage. Head CT 04/25/18 00:00 IMPRESSION: CHRONIC CHANGES OF ATROPHY AND MICROVASCULAR ISCHEMIA. NO ACUTE PROCESS. EVIDENCE OF ACUTE STROKE: NO. Qualifiers - * PATIENT BEING DISCHARGED WITH ANY OF THE FOLLOWING DIAGNOSIS: No
--- NOTE | 2018-04-29 08:46 | PDOC PROGRESS REPORT ---
Subjective Progress Note for:: 04/29/18 Subjective:: Patient doing very well, about to be discharged to rehab, recommended continued hold of aspirin until patient sees me back in about 3-4 weeks as outpatient. Reason For Visit: ACUTE CVA Physical Exam Vital Signs: Temp Pulse Resp BP Pulse Ox 97.6 F 48 L 17 162/87 H 97 04/29/18 07:31 04/29/18 07:31 04/29/18 07:31 04/29/18 07:31 04/29/18 07:31 Intake & Output 04/28/18 04/29/18 04/30/18 06:59 06:59 06:59 Intake Total 1546 710 Output Total 375 1265 Balance 1171 -555 General appearance: PRESENT: no acute distress, well-developed, well-nourished Head exam: PRESENT: atraumatic, normocephalic Eye exam: PRESENT: conjunctiva pink, EOMI, PERRLA. ABSENT: scleral icterus Ear exam: PRESENT: normal external ear exam Mouth exam: PRESENT: moist, tongue midline Neck exam: ABSENT: carotid bruit, JVD, lymphadenopathy, thyromegaly Respiratory exam: PRESENT: clear to auscultation lurdes. ABSENT: rales, rhonchi, wheezes Cardiovascular exam: PRESENT: RRR. ABSENT: diastolic murmur, rubs, systolic murmur Pulses: PRESENT: normal dorsalis pedis pul Vascular exam: PRESENT: normal capillary refill GI/Abdominal exam: PRESENT: normal bowel sounds, soft. ABSENT: distended, guarding, mass, organolmegaly, rebound, tenderness Rectal exam: PRESENT: deferred Extremities exam: PRESENT: full ROM. ABSENT: calf tenderness, clubbing, pedal edema Neurological exam: PRESENT: alert, awake, oriented to person, oriented to place, oriented to time, oriented to situation, CN II-XII grossly intact. ABSENT: motor sensory deficit Psychiatric exam: PRESENT: appropriate affect, normal mood. ABSENT: homicidal ideation, suicidal ideation Skin exam: PRESENT: dry, intact, warm. ABSENT: cyanosis, rash Results Laboratory Results: 04/28/18 06:05 04/28/18 06:05 04/24/18 04/24/18 04/25/18 19:31 19:31 09:01 Creatine Kinase 152 CK-MB (CK-2) 4.25 Troponin I < 0.012 NT-Pro-B Natriuret Pep 1130 H 04/26/18 06:33 Creatine Kinase CK-MB (CK-2) Troponin I NT-Pro-B Natriuret Pep 766 H Impressions: Chest X-Ray 04/24/18 00:00 IMPRESSION: No evidence of acute cardiopulmonary disease. NUMBER OF VIEWS: TECHNIQUE: LIMITATIONS: None. FINDINGS: IMPRESSION: copyright 2010 [employer]- All Rights Reserved Carotid Doppler Study 04/24/18 20:38 IMPRESSION: Mild atheromatous changes of the carotid bifurcations bilaterally with no evidence for severe stenosis. Elevated left ECA velocity is noted. Antegrade flow in the vertebral arteries. copyright 2010 [employer]- All Rights Reserved Head MRI 04/24/18 20:38 IMPRESSION: There is hyperacute ischemia involving the lateral aspect of the left thalamus. No other acute abnormality is identified. No definite acute hemorrhage. Head CT 04/25/18 00:00 IMPRESSION: CHRONIC CHANGES OF ATROPHY AND MICROVASCULAR ISCHEMIA. NO ACUTE PROCESS. EVIDENCE OF ACUTE STROKE: NO. Assessment & Plan - Diagnosis (1) Von Willebrand's disease Is this a current diagnosis for this admission?: Yes Plan: Von Willebrand levels do indicate a mildly low von Willebrand activity level, plan for hold on aspirin.. (2) Thalamic stroke Is this a current diagnosis for this admission?: Yes Plan: Improving, patient going to rehab, hold aspirin until patient sees us back and will make a decision further then.
[2018-04-29] MEDS: DOCUSATE SODIUM 100 MG CAPSULE PO SCH (09:10)
[2018-04-29] MEDS: FAMOTIDINE 20 MG TABLET PO SCH (09:10)
[2018-04-29 13:51] LABS: VON WILLEBRAND FACTOR ACTIVITY 40 % (50-200); VON WILLEBRAND FACTOR ANTIGEN 82 % (50-200)
== END 2018-04-29 10:17 | DRG 64 ==
LOC: ER 19:44 → EH 22:35 → 3S 04-25 00:01
PROVIDERS: ADMIT Emergency Medicine; ATTEND Emergency Medicine
DX: I63.22 Cerebral infarction due to unspecified occlusion or stenosis of basilar artery (principal); I63.81 Other cerebral infarction due to occlusion or stenosis of small artery; D68.0 Von Willebrand disease; I63.212 Cerebral infarction due to unspecified occlusion or stenosis of left vertebral artery; I10 Essential (primary) hypertension; R47.81 Slurred speech; R47.01 Aphasia; R29.810 Facial weakness; F17.210 Nicotine dependence, cigarettes, uncomplicated; I11.9 Hypertensive heart disease without heart failure; Z66 Do not resuscitate; M10.039 Idiopathic gout, unspecified wrist; Z88.6 Allergy status to analgesic agent; Z88.0 Allergy status to penicillin; Z88.8 Allergy status to other drugs, medicaments and biological substances; Z82.49 Family history of ischemic heart disease and other diseases of the circulatory system
CPT/HCPCS: 36415; 70450; 70551; 71045; 80048; 80053; 80061; 81001; 82550; 82553; 82962; 83036; 83735; 83880; 84439; 84443; 84481; 84484; 85025; 85027; 85240; 85245; 85246; 85247; 85610; 85730; 93005; 93010; 93880; 99291; J0360; J3490; J7512